=== PATIENT | male | born 1985 | race Caucasian/White ===

== ENCOUNTER 2016-06-27 12:57 | Emergency (ER) | payer SELFPAY | END 2016-06-27 14:55 | disposition home or self-care (01) | LOC: ER1 12:57 | DX: S83.91XA Sprain of unspecified site of right knee, initial encounter (principal); Y93.01 Activity, walking, marching and hiking | CPT/HCPCS: 29530; 73564; 99283 ==

== ENCOUNTER 2016-08-24 20:55 | Emergency (ER) | payer SELFPAY | END 2016-08-25 00:38 | disposition home or self-care (01) | LOC: ER1 20:55 | DX: S93.601A Unspecified sprain of right foot, initial encounter (principal); F17.210 Nicotine dependence, cigarettes, uncomplicated; W22.09XA Striking against other stationary object, initial encounter; Y93.01 Activity, walking, marching and hiking; Y99.8 Other external cause status | CPT/HCPCS: 73630; 99283 ==

== ENCOUNTER 2020-09-13 05:38 | Emergency (ER) | payer OTHER ==
[2020-09-13 06:54] LABS: HEMOGLOBIN 17.2 gm/dl (14.0-17.5); RED BLOOD COUNT 5.14 M/UL (4.20-5.50); WHITE BLOOD COUNT 5.8 K/UL (4.5-11.0)
[2020-09-13 07:21] LABS: BUN/CREATININE RATIO 10 (0-10)
[2020-09-13] MEDS ORDERED: CYCLOBENZAPRINE10 MG PO (08:37)
== END 2020-09-13 08:54 | disposition home or self-care (01) ==
LOC: ER1 05:38
PROVIDERS: Emergency Medicine
DX: R10.9 Unspecified abdominal pain (principal); M54.5 Low back pain; F17.200 Nicotine dependence, unspecified, uncomplicated
CPT/HCPCS: 80053; 83690; 85025; 96374; 96375; 99284; J1885; J2405; J7030